=== PATIENT | male | born 1970 | race Hispanic/Latino ===

== ENCOUNTER 2021-08-02 11:34 | Outpatient (CLI) | payer BC ==
[2021-08-02 13:46] LABS: Anion Gap 15 mmol/L (10-20); BUN (Urea Nitrogen) 16 mg/dL (8.4-25.7); Calc. Creatinine Clearance 0 mL/min (70-130); Calcium 9.4 mg/dL (7.8-10.44); Carbon Dioxide 27 mmol/L (22-29); Chloride 99 mmol/L (98-107); Glucose 350 mg/dL (70-105); Potassium 4.2 mmol/L (3.5-5.1); Sodium 137 mmol/L (136-145)
[2021-08-03 11:02] LABS: SARS-CoV-2 PCR by NAA Not Detected (NotDetected)
== END 2021-08-02 11:35 | disposition home or self-care (01) ==
LOC: CSHLAB 11:34
PROVIDERS: ATTEND Surgery
DX: Z01.818 Encounter for other preprocedural examination (principal); Z20.822 Contact with and (suspected) exposure to COVID-19
CPT/HCPCS: 80048; 93005; 93010; U0003; U0005

== ENCOUNTER 2021-08-04 05:32 | Day surgery (SDC) | payer BC ==
[2021-08-03 10:58] VITALS: BMI 27.8
[2021-08-04] MEDS ORDERED: Lidocaine 1% MPF 2 ML VIAL ONE (06:17)
[2021-08-04] MEDS ORDERED: Bupivacaine 0.25% HCL 30 ML VIAL ONE (06:32)
[2021-08-04] MEDS ORDERED: EPINEPHrine 1 MG/ML AMP ONE (06:33)
[2021-08-04] MEDS ORDERED: PROPOFOL 20 ML ONE (06:58)
[2021-08-04] MEDS ORDERED: Lidocaine 1% PF 5 ML VIAL ONE (06:59)
[2021-08-04] MEDS ORDERED: Fentanyl 100 MCG/2 ML VIAL ONE (07:22)
[2021-08-04] MEDS ORDERED: Ondansetron PF 4 MG/2 ML Vial ONE (07:27)
[2021-08-04] MEDS ORDERED: Metoclopramide HCl 10 MG/2 ML VIAL ONE (07:27)
[2021-08-04] MEDS ORDERED: HYDROcodone/Acetaminophen 5/325 mg Tablet PO PRN (08:05)
== END 2021-08-04 08:50 | disposition home or self-care (01) ==
LOC: CSHSDC 05:32
PROVIDERS: ATTEND Surgery
DX: C25.2 Malignant neoplasm of tail of pancreas (principal)
CPT/HCPCS: 76000; C1788; J0171; J0690; J1642; J2405; J2704; J2765; J3010; S0020